=== PATIENT | female | born 1950 | race Caucasian/White ===

== ENCOUNTER 2016-07-05 07:20 | Outpatient (CLI) | payer OTHER | END 2016-07-05 07:21 | disposition home or self-care (01) | DX: E11.9 Type 2 diabetes mellitus without complications (principal) ==

== ENCOUNTER 2017-01-16 10:35 | Outpatient (CLI) | payer OTHER ==
--- NOTE | 2017-01-17 12:33 | Mammography Report ---
DIGITAL SCREENING MAMMOGRAM: 01/16/2017 CLINICAL INDICATION: A 66-year-old for screening. COMPARISON: 09/2015, 07/2014, 07/2013, 07/2012, 02/2011, 01/2010 TECHNIQUE: Routine CC and MLO projections were obtained of the breasts. FINDINGS: The breasts again demonstrate fatty replacement bilaterally. Coarse and punctate, typical ly benign calcifications are present. No suspicious masses, clustered microcalcifications, or region s of architectural distortion are identified. IMPRESSION: BENIGN FINDINGS. RECOMMENDATION: Routine annual screening unless otherwise clinically indicated. BIRADS CATEGORY 2 - BENIGN FINDINGS. STANDARD QUALIFYING STATEMENTS 1. This examination was reviewed with the aid of Computer-Aided Detection (CAD). 2. A negative or benign imaging report should not delay biopsy if clinically suspicious findings are present. Consider surgical consultation if warranted. More than 5% of cancers are not identified by i maging. 3. Dense breasts may obscure an underlying neoplasm. JOB #: [id number] EXT JOB #:[id number]
== END 2017-01-16 10:36 | disposition home or self-care (01) ==
LOC: DI.N 10:35
PROVIDERS: ATTEND Physician Assistant Medical
DX: Z12.31 Encounter for screening mammogram for malignant neoplasm of breast (principal)
CPT/HCPCS: 77067

== ENCOUNTER 2017-08-11 09:15 | Outpatient (CLI) | payer MEDICARE, OTHER ==
[2017-08-11 12:37] LABS: BASOPHILS % (AUTO) 0.7 %; EOSINOPHILS # (AUTO) 0.2 10^3/uL (0.0-0.7); EOSINOPHILS % (AUTO) 3.4 %; HGB - HEMOGLOBIN 13.9 g/dL (12.0-16.0); LYMPHOCYTES # (AUTO) 1.7 10^3/uL (1.5-3.5); LYMPHOCYTES % (AUTO) 34.7 %; MEAN CORPUSCULAR HEMOGLOBIN 33.9 pg (27.0-31.0); MEAN CORPUSCULAR HGB CONC 33.5 g/dL (32.0-36.0); MEAN CORPUSCULAR VOLUME 101.2 fL (81.0-99.0); MEAN PLATELET VOLUME 8.2 fL (7.9-10.8); MONOCYTES # (AUTO) 0.5 10^3/uL (0.0-1.0); MONOCYTES % (AUTO) 9.7 %; NEUTROPHILS # (AUTO) 2.6 10^3/uL (1.5-6.6); NEUTROPHILS % (AUTO) 51.5 %; PLT - PLATELET COUNT 273 10^3/uL (130-450); RED CELL DISTRIBUTION WIDTH 13.4 % (12.0-15.0)
[2017-08-11 13:09] LABS: ALBUMIN 3.6 g/dL (3.2-5.5); ALBUMIN/GLOBULIN RATIO 0.9 (1.0-2.2); ALKALINE PHOSPHATASE 66 IU/L (42-121); ALT ALANINE AMINOTRANSFERASE 14 IU/L (10-60); AST ASPARTATE AMINOTRANSFERASE 24 IU/L (10-42); BILIRUBIN,TOTAL 1.1 mg/dL (0.2-1.0); BUN - BLOOD UREA NITROGEN 16 mg/dL (6-20); CALCIUM 8.9 mg/dL (8.5-10.3); CARBON DIOXIDE - CO2 24 mmol/L (21-32); CHLORIDE 108 mmol/L (101-111); CHOL/HDL RATIO 3.9 (<4.4); CHOLESTEROL 191 mg/dL; CREATININE 0.6 mg/dL (0.4-1.0); GFR - MDRD 100 (>89); GLUCOSE 103 mg/dL (70-100); HDL CHOLESTEROL 49 mg/dL; LDL CHOLESTEROL,CALCULATED 128 mg/dL; LDL/HDL RATIO 2.6 (<4.4); SODIUM 137 mmol/L (135-145); TOTAL PROTEIN 7.5 g/dL (6.7-8.2); VLDL CHOLESTEROL 14 mg/dL
[2017-08-11 13:38] LABS: HB2 TOTAL 15.3 g/dL; HEMOGLOBIN A1C 0.58 g/dL; HEMOGLOBIN A1C % 5.6 % (4.6-6.2)
== END 2017-08-11 09:16 | disposition home or self-care (01) ==
LOC: LAB.WCP 09:15
PROVIDERS: ATTEND Family Medicine
DX: E78.5 Hyperlipidemia, unspecified (principal); E11.9 Type 2 diabetes mellitus without complications; E03.9 Hypothyroidism, unspecified
CPT/HCPCS: 36415; 80053; 80061; 83036; 83721; 84443; 85025

== ENCOUNTER 2017-10-16 07:43 | Outpatient (CLI) | payer MEDICARE, OTHER | END 2017-10-16 07:44 | disposition home or self-care (01) | LOC: LAB.WCP 07:43 | PROVIDERS: ATTEND Family Medicine | DX: E03.9 Hypothyroidism, unspecified (principal) | CPT/HCPCS: 36415; 84443 ==

== ENCOUNTER 2017-10-25 16:56 | Outpatient (CLI) | payer MEDICARE, OTHER ==
--- NOTE | 2017-10-26 04:03 | Ultrasound Report ---
Reason: HYPOTHYROIDISM NOS Procedure Date: 10/25/2017 Accession Number: [id number] / [id number] Procedure: US - Head or Neck Soft Tissue CPT Code: FULL RESULT: EXAM: THYROID ULTRASOUND EXAM DATE: 10/25/2017 05:02 PM. CLINICAL HISTORY: HYPOTHYROIDISM NOS. COMPARISON: 01/05/2009. TECHNIQUE: Real time sonographic imaging of the thyroid was performed by the match up person. Multiple customer relations representative static images were saved for review. FINDINGS: THYROID GLAND: Right Lobe: 4.2 x 1.4 x 1.2 cm, volume 4 cc. Heterogeneous background echotexture. Right Lobe Nodules: Echogenic 7 x 7 x 6 mm nodule in the midportion of the right lobe, without increased vascularity. Left Lobe: 4.5 x 1.6 x 1.4 cm, volume 5 cc. Heterogeneous background echotexture. Left Lobe Nodules: None. Isthmus: 0.2 cm AP. Isthmic Nodules: None. LYMPH NODES: No adenopathy demonstrated in the central or lateral compartment. OTHER: None. IMPRESSION: Heterogeneous thyroid. 7 mm echogenic nodule, without evidence of hypervascularity, in the midportion of the right lobe. Fine-needle aspiration not recommended based on YAW guidelines. Management recommendations are based on 2015 [employer] [employer] Management Guidelines for Adult Patients with Thyroid Nodules and Differentiated Thyroid Cancer. RADIA
== END 2017-10-25 16:57 | disposition home or self-care (01) ==
LOC: DI 16:56
PROVIDERS: ATTEND Physician Assistant Medical
DX: E03.9 Hypothyroidism, unspecified (principal)
CPT/HCPCS: 76536

== ENCOUNTER 2017-11-07 15:46 | Outpatient (CLI) | payer MEDICARE, OTHER | END 2017-11-07 15:47 | disposition critical access hospital (66) | LOC: EMS 15:46 | PROVIDERS: ATTEND Surgery | DX: R07.9 Chest pain, unspecified (principal) | CPT/HCPCS: A0425; A0427 ==

== ENCOUNTER 2017-11-07 16:13 | Observation (INO) | payer MEDICARE, OTHER ==
--- NOTE | 2017-11-07 16:20 | ED Physician Documentation ---
PD HPI CHEST PAIN - Stated complaint Stated Complaint: CP - History obtained from History obtained from: Patient, EMS - History of Present Illness Timing - onset: How many hours ago (1), Today Timing - onset during: Light activity (She was sitting at chair resting and had onset of chest pressure/tightness associated with lightheaded feeling, some dyspnea and was pale and sweaty. Taken directly to her PCP office and was there given ASA and NTGx2 with improvement moderately. No prior similar. ECG in office showed some T wave flatteneing but no acute ischemic changes.) Timing - duration: Hours (1) Timing - details: Abrupt onset, Still present Quality: Pressure, Tightness, Dull. No: Indigestion Location: Substernal, Left chest Associated symptoms: Diaphoresis, Nausea, Feeling faint / dizzy, General Weakness. No: Shortness of air, Palpitations, Cough Similar symptoms before: Has not had sx before (had an episode of esophageal spasm with similar symptoms about 10 years ago. No recent symptoms.) Recently seen: Clinic Review of Systems Constitutional: denies: Fever, Chills, Myalgias Nose: denies: Rhinorrhea / runny nose, Congestion Throat: denies: Sore throat Cardiac: reports: Chest pain / pressure. denies: Palpitations, Pedal edema, Calf pain Respiratory: denies: Dyspnea, Cough, Wheezing GI: reports: Nausea. denies: Abdominal Pain, Vomiting, Diarrhea Skin: denies: Rash, Lesions Neurologic: reports: Generalized weakness. denies: Focal weakness, Numbness PD PAST MEDICAL HISTORY - Past Medical History Cardiovascular: High cholesterol Endocrine/Autoimmune: Type 2 diabetes, HyPOthyroidism HEENT: Other - Present Medications Home Medications: Ambulatory Orders Medication Instructions Recorded Confirmed Aspirin [Aspir 81] 81 mg PO 12/26/12 12/26/12 Citalopram [CeleXA] 10 mg PO 12/26/12 12/26/12 Levothyroxine [Synthroid] 125 mcg PO QDAC 12/26/12 12/26/12 Metformin HCl [Metformin HCl ER] 500 mg PO 12/26/12 12/26/12 Atorvastatin [Lipitor] 10 mg DAILY 11/07/17 11/07/17 - Allergies Allergies/Adverse Reactions: Allergies Allergy/AdvReac Type Severity Reaction Status Date / Time Penicillins Allergy unknown Unverified 12/25/12 14:06 procaine [From Novocain] AdvReac Severe Unknown Verified 11/07/17 17:13 - Living Situation Living Situation: reports: With spouse/s.o. Living Arrangement: reports: At home - Social History Does the pt smoke?: No Does the pt have substance abuse?: No - Family History Family history: reports: CAD PD ED PE NORMAL - Vitals Vital signs reviewed: Yes - General General: Alert and oriented X 3, No acute distress (mild pallor, no diaphoresis), Well developed/nourished - HEENT HEENT: Pharynx benign - Neck Neck: Supple, no meningeal sign, No adenopathy - Cardiac Cardiac: RRR, No murmur - Respiratory Respiratory: Clear bilaterally - Abdomen Abdomen: Soft, Non tender - Back Back: No CVA TTP - Derm Derm: Warm and dry. No: Normal color (slightly pale) - Extremities Extremities: No deformity, No tenderness to palpate, Normal ROM s pain, No edema, No calf tenderness / cord - Neuro Neuro: Alert and oriented X 3, foot caster 2-12 intact, No motor deficit, No sensory deficit, Normal speech - Psych Psych: Normal mood, Normal affect Results - Vitals Vitals: Vital Signs - 24 hr 11/07/17 11/07/17 11/07/17 16:17 16:36 17:52 Temperature 36.2 C L Heart Rate 76 65 Respiratory 16 12 Rate Blood Pressure 83/56 L 98/62 102/59 L O2 Saturation 97 99 11/07/17 18:35 Temperature 36.0 C L Heart Rate 67 Respiratory 14 Rate Blood Pressure 113/66 O2 Saturation 9 L Oxygen O2 Source Room air - EKG (time done) 16:29 Rate: Rate (enter#) (77) Rhythm: NSR [place]: Normal Intervals: Normal VT QRS: Normal Ischemia: Normal ST segments. No: ST elevation c/w ischemia, ST depression, T wave inversion (but has flattened t waves anterolaterally) Compare to prior EKG: Old EKG unavailable - Labs Labs: Laboratory Tests 11/07/17 11/07/17 11/07/17 16:14 16:32 16:32 WBC 7.7 RBC 3.56 L Hgb 12.0 Hct 34.7 L MCV 97.5 MCH 33.6 H MCHC 34.5 RDW 13.4 Plt Count 287 MPV 7.8 L Neut # (Auto) 5.1 Lymph # (Auto) 1.8 [place] # (Auto) 0.7 Eos # (Auto) 0.1 Baso # (Auto) 0.0 Absolute Nucleated RBC 0.00 Nucleated RBC % 0.0 Sodium 140 Potassium 3.6 Chloride 108 Carbon Dioxide 23 Anion Gap 9.0 BUN 17 Creatinine 0.6 Estimated GFR (MDRD) 100 Glucose 116 H Calcium 9.2 Magnesium 1.8 Total Bilirubin 0.7 AST 72 H ALT 43 Alkaline Phosphatase 86 Troponin I Total Protein 7.0 Albumin 3.6 Globulin 3.4 Albumin/Globulin Ratio 1.1 Lipase 46 11/07/17 16:32 WBC RBC Hgb Hct MCV MCH MCHC RDW Plt Count MPV Neut # (Auto) Lymph # (Auto) [place] # (Auto) Eos # (Auto) Baso # (Auto) Absolute Nucleated RBC Nucleated RBC % Sodium Potassium Chloride Carbon Dioxide Anion Gap BUN Creatinine Estimated GFR (MDRD) Glucose Calcium Magnesium Total Bilirubin AST ALT Alkaline Phosphatase Troponin I < 0.04 Total Protein Albumin Globulin Albumin/Globulin Ratio Lipase - Rads (name of study) chest xray Radiology: Prelim report reviewed (no acute findings) PD MEDICAL DECISION MAKING - ED course Complexity details: reviewed results, re-evaluated patient, considered differential (symptoms concerning for ACS and will need to rule out DE. ), d/w patient, d/w rehab consultant (hospitalist) - Sepsis Event Vital Signs: Vital Signs - 24 hr 11/07/17 11/07/17 11/07/17 16:17 16:36 17:52 Temperature 36.2 C L Heart Rate 76 65 Respiratory 16 12 Rate Blood Pressure 83/56 L 98/62 102/59 L O2 Saturation 97 99 11/07/17 18:35 Temperature 36.0 C L Heart Rate 67 Respiratory 14 Rate Blood Pressure 113/66 O2 Saturation 9 L Oxygen O2 Source Room air Departure - Departure Disposition: ED Place in Observation Clinical Impression: Chest pain, rule out acute myocardial infarction Chest pain Qualifiers: Chest pain type: precordial pain Qualified Code(s): R07.2 - Precordial pain Condition: Stable Record reviewed to determine appropriate education?: Yes
[2017-11-07 16:39] LABS: BASOPHILS % (AUTO) 0.6 %; EOSINOPHILS # (AUTO) 0.1 10^3/uL (0.0-0.7); EOSINOPHILS % (AUTO) 1.9 %; LYMPHOCYTES # (AUTO) 1.8 10^3/uL (1.5-3.5); LYMPHOCYTES % (AUTO) 23.3 %; MEAN CORPUSCULAR HEMOGLOBIN 33.6 pg (27.0-31.0); MEAN CORPUSCULAR HGB CONC 34.5 g/dL (32.0-36.0); MEAN CORPUSCULAR VOLUME 97.5 fL (81.0-99.0); MEAN PLATELET VOLUME 7.8 fL (7.9-10.8); MONOCYTES # (AUTO) 0.7 10^3/uL (0.0-1.0); MONOCYTES % (AUTO) 8.9 %; NEUTROPHILS # (AUTO) 5.1 10^3/uL (1.5-6.6); NEUTROPHILS % (AUTO) 65.3 %; PLT - PLATELET COUNT 287 10^3/uL (130-450); RED BLOOD COUNT 3.56 10^6/uL (4.20-5.40); RED CELL DISTRIBUTION WIDTH 13.4 % (12.0-15.0); WHITE BLOOD COUNT 7.7 x10^3/uL (4.8-10.8)
[2017-11-07] MEDS ORDERED: LIDOCAINE VISCOUS 2% 15 ML UDC MM STA (16:54)
[2017-11-07] MEDS ORDERED: MAG HYDROX/AL HYDROX/SIMETH 30 ML UDC PO STA (16:54)
[2017-11-07 16:59] LABS: ALBUMIN 3.6 g/dL (3.2-5.5); ALBUMIN/GLOBULIN RATIO 1.1 (1.0-2.2); BILIRUBIN,TOTAL 0.7 mg/dL (0.2-1.0); CALCIUM 9.2 mg/dL (8.5-10.3); CREATININE 0.6 mg/dL (0.4-1.0)
--- NOTE | 2017-11-07 18:34 | XRAY Report ---
Reason: chest pain Procedure Date: 11/07/2017 Accession Number: [id number] / [id number] Procedure: XR - Chest 1 View X-Ray CPT Code: 98275 FULL RESULT: EXAM: CHEST RADIOGRAPHY EXAM DATE: 11/07/2017 06:28 PM. CLINICAL HISTORY: Chest pain. COMPARISON: 07/09/2007 10:05 AM. TECHNIQUE: 1 view. FINDINGS: Lungs/Pleura: No focal opacities evident. No pleural effusion. No pneumothorax. Mediastinum: Within exam limitations, the cardiomediastinal contour is normal. IMPRESSION: Normal single view chest. RADIA
[2017-11-07] MEDS ORDERED: SODIUM CHLORIDE FLUSH 0.9% 10 ML SYRINGE IVP PRN (21:57)
[2017-11-07] MEDS: SODIUM CHLORIDE FLUSH 0.9% 10 ML SYRINGE IVP SCH (23:45)
[2017-11-08] MEDS ORDERED: ACETAMINOPHEN 325 MG TABLET PO PRN (00:15)
[2017-11-08] MEDS ORDERED: CITALOPRAM 10 MG TABLET PO SCH (00:40)
--- NOTE | 2017-11-08 02:51 | HISTORY & PHYSICAL EXAMINATION ---
Chief Complaint - Chief Complaint Chief Complaint: chest pain History of Present Illness - History of Present Illness HPI Comment/Other: Patient is a 66 y/o female with Hx of DM, Hypothyroidism, Hyperlipidemia and depression who presented from her PCP's office with chest pain across her entire chest with radiation to her back. She rated it 9/10 at the time. Onset was around 2pm on 11/08/17. It felt like a rubber band. She was having some LACI and was diaphoretic. EKG done at the PCP's office showed t wave flattening in unspecified leads. She took 4 baby aspirin. When EMT arrived she was given 2 nitroglycerin tablets from which she had significant relief. She reports similar pain about 10 years ago. At the time it was attributed to esophageal spasm. She reported some dizziness as well. History - Past Medical History Cardiovascular: reports: High cholesterol Endocrine/Autoimmune: reports: Type 2 diabetes, HyPOthyroidism GI: reports: Other HEENT: reports: Other Psych: reports: Depression Musculoskeletal: reports: Osteoarthritis - Past Surgical History HEENT: reports: Tonsil/Adenoidectomy - Family & Social History Living arrangement: At home Living Situation: With spouse/s.o. - POLST POLST Status: Full Code Meds/Allgy - Home Medications Home Medications: Ambulatory Orders Medication Instructions Recorded Confirmed Aspirin [Aspir 81] 81 mg PO 12/26/12 12/26/12 Citalopram [CeleXA] 15 mg PO 12/26/12 12/26/12 Levothyroxine [Synthroid] 125 mcg PO QDAC 12/26/12 12/26/12 Metformin HCl [Metformin HCl ER] 500 mg PO 12/26/12 12/26/12 Atorvastatin [Lipitor] 10 mg DAILY 11/07/17 11/07/17 - Allergies Allergies/Adverse Reactions: Allergies Allergy/AdvReac Type Severity Reaction Status Date / Time Penicillins Allergy unknown Verified 11/07/17 22:06 procaine [From Novocain] AdvReac Severe Unknown Verified 11/07/17 22:06 Review of Systems - Constitutional Constitutional: reports: Diaphoresis. denies: Fatigue, Fever, Chills, Weakness, Poor appetite - Eyes Eyes: denies: Pain, Irritation, Blurred vision, Spots in vision, Vision loss, Dipolpia - Ears, Nose & Throat Ears, Nose & Throat: denies: Ear pain, Hearing loss, Hearing aids, Nasal obstruction, Nasal congestion - Cardiovascular Cariovascular: reports: Chest pain, Lightheadedness. denies: Irregular heart rate, Palpitations, Edema - Respiratory Respiratory: denies: Cough, Sputum production, Wheezing, Snoring, Hemoptysis - Gastrointestinal Gastrointestinal: denies: Abdominal pain, Abdominal distention, Constipation, Diarrhea, Change in bowel habits, Nausea, Vomiting - Genitourinary Genitourinary: denies: Dysuria, Frequency, Urgency, Hematuria - Musculoskeletal Musculoskeletal: denies: Muscle pain, Back pain, Muscle aches, Stiffness - Integumentary Integumentary: denies: Rash, Pruritis, Lesions, Dryness - Neurological Neurological: denies: General weakness, Focal weakness, Headache, Numbness - Psychiatric Psychiatric: reports: Depression. denies: Anxiety, Suicidal, Delusions - Endocrine Endocrine: denies: Polyuria, Polydypsia - Hematologic/Lymphatic Hematologic/Lymphatic: denies: Anemia, Bruising, Petechiae, Blood clots Exam - Vital Signs Vital Signs: Vital Signs x48h Temp Pulse Pulse Resp BP BP BP 11/07/17 23:41 36.8 C 60 18 129/73 11/07/17 22:41 36.5 C 66 16 109/57 L 11/07/17 22:06 74 15 115/67 11/07/17 20:56 71 16 123/80 11/07/17 18:35 36.0 C L 67 14 113/66 Pulse Ox 11/07/17 23:41 100 11/07/17 22:41 96 11/07/17 22:06 95 11/07/17 20:56 98 11/07/17 18:35 9 L - Physical Exam General Appearance: positive: No acute distress, Alert, Mild distress Eyes Bilateral: positive: Normal inspection, PERRL, EOMI, No scleral icterus ENT: positive: ENT inspection nml, Pharynx nml, No signs of dehydration Neck: positive: Nml inspection, No JVD, Trachea midline. negative: Thyromegaly Respiratory: positive: Chest non-tender, No respiratory distress, Breath sounds nml Cardiovascular: positive: Regular rate & rhythm, No murmur, No gallop Abdomen: positive: Non-tender, No organomegaly, Nml bowel sounds, No distention Skin: positive: Color nml, No rash, Warm, Dry, Cyanosis Extremities: positive: Non-tender, Nml appearance, No pedal edema Neurologic/Psychiatric: positive: Oriented x3, CN's nml (2-12), Motor nml, Sensation nml Conclusion/Plan - Problem List (1) Chest pain, rule out acute myocardial infarction Conclusion/Plan: Trend troponin X 2 more Full dose aspirin daily If trops negative, will do stress test Stress test and 2D echo have been ordered Should chest pain return, will administer nitropaste (2) Hypothyroidism Conclusion/Plan: On synthroid 125mcg po daily (3) Diabetes mellitus Conclusion/Plan: Will hold metformin while in the hospital If needed will order SSI. Accu checks Qualifiers: Diabetes mellitus type: type 2 Diabetes mellitus petroleum terminal plant operator insulin use: without petroleum terminal plant operator use Diabetes mellitus complication status: without complication Qualified Code(s): E11.9 - Type 2 diabetes mellitus without complications (4) Depression Conclusion/Plan: On citalopram (5) DVT prophylaxis Conclusion/Plan: Lovenox 40 units subq - Lab Results Fish Bones: 11/07/17 16:32 11/07/17 16:32 Core Measures - Anticipated LOS I expect patient to be DC'd or transferred within 96 hours.: Yes - DVT/VTE - Prophylaxis VTE/DVT Device ordered at admit?: Yes VTE/DVT Prophylaxis med ordered at admit?: Yes - AMI - Statin at Admit Aspirin Prescribed on Admit: Yes
[2017-11-08] MEDS ORDERED: LEVOTHYROXINE 125 MCG TABLET PO SCH (07:00)
[2017-11-08] MEDS ORDERED: ENOXAPARIN 40 MG/0.4 ML SYRINGE SUBQ SCH (09:00)
[2017-11-08] MEDS ORDERED: ATORVASTATIN 10 MG TABLET PO SCH (09:00)
[2017-11-08] MEDS ORDERED: ASPIRIN EC 325 MG TABLET PO SCH (09:00)
[2017-11-08] MEDS ORDERED: POLYETHYLENE GLYCOL 3350 17 GM PACKET PO SCH (09:00)
[2017-11-08] MEDS: SODIUM CHLORIDE FLUSH 0.9% 10 ML SYRINGE IVP SCH (09:24)
[2017-11-08] MEDS ORDERED: REGADENOSON 0.4 MG/5 ML SYRINGE IVP ONE ×2 (11:52→14:22)
--- NOTE | 2017-11-08 14:50 | Nuclear Medicine Report ---
Reason: angina Procedure Date: 11/08/2017 Accession Number: [id number] / [id number] Procedure: NM - Myocardial Perfusion STR/RST CPT Code: FULL RESULT: EXAM: SINGLE-ISOTOPE PHARMACOLOGICAL STRESS TEST WITH REGADENOSON. SINGLE-ISOTOPE AND ONE-DAY REST/STRESS MYOCARDIAL PERFUSION SCANS WITH TOMOGRAPHIC IMAGING, QUANTITATIVE ANALYSIS, WALL MOTION ANALYSIS AND CALCULATION OF EJECTION FRACTION. EXAM DATE: 11/08/2017 02:15 PM. CLINICAL HISTORY: Angina. COMPARISON: None available. TECHNIQUE: After the intravenous administration of 10.1 mCi of Tc-99m sestamibi, a rest myocardial perfusion scan was done with tomography. Motion correction was applied when appropriate. After an appropriate delay, pharmacological stress was performed with the infusion of 0.4 mg regadenoson per protocol. According to protocol, 42.3 mCi of Tc-99m sestamibi was injected for stress myocardial perfusion scan. Motion correction was applied when appropriate. Gated tomographic images were obtained for wall motion analysis and computation of left ventricular ejection fraction. EKG findings are reported separately FINDINGS: No significant fixed or reversible perfusion defects are evident. Computer analysis: Summed stress score 3 Summed rest score 2 Summed difference score 1 Wall motion analysis demonstrates no focal wall motion abnormality. The left ventricular end-diastolic volume is 66 cc. The left ventricular end-systolic volume is 13 cc. The left ventricular ejection fraction is calculated to be 80%. IMPRESSION: 1. No scintigraphic findings to indicate myocardial ischemia. Negative for infarct. 2. Left ventricular ejection fraction of 80%. 3. Normal segmental and global wall motion. 4. Normal left ventricular cavity size, no change with stress. 5. Based on computer analysis, normal exam with no ischemia. RADIA
--- NOTE | 2017-11-08 15:23 | Discharge Plan ---
Discharge Plan Disposition: 01 Home, Self Care Condition: Good Diet: Diabetic Activity Restrictions: No Restrictions Shower Restrictions: No Driving Restrictions: No Weight Bearing: Full Weight Additional Instructions or Follow Up instructions: You were admitted with chest pain that was located in your mid-chest and caused you to be dizzy. We are very glad that you came in and all of your cardiac testing (EKGs, echocardiogram, and a myocardial perfusion stress test) was normal for cardiac damage or suspected coronary blockages. These symptoms resolved with 4 baby aspirins and nitroglycerin. You mentioned that you had a history of esophageal spasms, which is the most likely cause of these symptoms. We suggest an EGD as the symptoms that you describe could be from a condition called achalasia. (preventing areas of the esophagus from squeezing food into the stomach) Preliminary echocardiogram results show severe right atrial enlargement, for this we suspect un-diagnosed sleep apnea as a possible cause. You should get a sleep study evaluation in the near future. Please stay hydrated for your dizzy symptoms. We suggest no medication changes and want you to enjoy your upcoming cruise. Please see your PCP within one week. No Smoking: If you smoke, Please STOP! Call for help. Follow-up with: Sandy Guzman PA-C [Primary Care Provider] -
--- NOTE | 2017-11-08 16:16 | DISCHARGE SUMMARY ---
Discharge Summary Admit Date: 11/07/17 Discharge Date: 11/08/17 Discharging Provider: MARIE Verma Primary Care Provider: Sandy Guzman Code Status: Attempt Resuscitation Condition at Discharge: Good Discharge Disposition: 01 Home, Self Care - DIAGNOSES Admission Diagnoses: Chest pain, unspecified (R07.9) Hypothyroidism, unspecified (E03.9) Type 2 diabetes mellitus without complications (E11.9) Major depressive disorder, single episode, unspecified (F32.9) Discharge Diagnoses with Status of Each Condition: Chest pain, rule out acute myocardial infarction (R07.9) ruled out, stable. Diabetes mellitus type 2 in obese (E11.69) chronic, stable. H/O esophageal spasm (Z87.19) chronic, stable. Hypothyroidism (E03.9) chronic, stable. Depression (F32.9) chronic, stable. Pulmonary hypertension (I27.20) new on this admit, will need a sleep study. Hyperlipidemia (E78.5) chronic, stable. - HPI History of Present Illness: Vianey Pate (Anne) is a 66 y/o female with a past medical history of diet controlled diabetes mellitus type 2, hypothyroidism, hyperlipidemia and depression who presented via EMS with chest pain across her entire chest with radiation to her back. She rated it 9/10 at the time. Onset was around 2pm on 11/08/17 while ambulating into the supermarket. The patient describes the pain as "feeling like a rubber band". She admits to mild dizziness and diaphoresis. While en route to the ED, EMS gave the patient 4 chewable baby aspirin, and 2 nitroglycerin tablets from which she had significant relief. She reports similar pain about 10 years ago, was ruled out for cardiac causes, and attributed to esophageal spasm. In the ED an EKG showed t wave flattening in unspecified leads, with no prior EKG to compare. There were no significant lab abnormalities, and the first troponin was negative at 0.04. She was admitted to observation for further cardiac work up, including telemetry, an echocardiogram, and a myocardial perfusion stress test. - HOSPITAL COURSE Hospital Course: (1) Chest pain, rule out acute myocardial infarction Trend troponins x3-were negative. The patient was given a full dose aspirin, and high dose statin therapy. The patient underwent a chemical stress test, which was negative. She had an echocardiogram showing no wall motion abnormal ities. This is now ruled out. (2) Hypothyroidism The patient's last TSH was 6.46 on 10/16/17. She is prescribed synthroid 125mcg po daily at home and there were no changes made. (3) Diabetes mellitus The patient was prescribed metformin, which was on hold while in the hospital. She was given a one time dose of Lantus 10 units x1, given a SSI and Accu checks were completed. Her last hemoglobin A1C was 5.6% on 08/11/17, and the patient states that her sugars have been controlled lately. An early AM sugar was 116. This is considered stable upon discharge. (4) Depression The patient exhibited no signs of a depressed mood and denies suicidal ideation. She is prescribed citalopram at home which was continued here. This condition is thought to be in stable condition upon discharge. (5) Pulmonary HTN The patient has evidence of this as evidence of her physic as she has a very large abdominal girth. Her states that she snores at night and her echo has evidence of this as her RA is severely enlarged, although no RVSP was measured. (6) Hyperlipidemia This condition is thought to be stable and she remained on her normal statin that was continued at home. (7) H/O esophageal spasm The patient had similar symptoms to this event ~10 years ago. She states that she had a cardiac work up, which was normal. She was instructed to have a follow up as per her PCP with a possible scope. Disposition: The patient was anxious to be on her way at the time of discharge. She was transported via private car with her . She was symptom free and was told to follow up with her PCP for a sleep study test and follow up care with a possible EGD for her suspected alchalasia. - ALLERGIES Allergies/Adverse Reactions: Allergies Allergy/AdvReac Type Severity Reaction Status Date / Time Penicillins Allergy unknown Verified 11/07/17 22:06 procaine [From Novocain] AdvReac Severe Unknown Verified 11/07/17 22:06 - MEDICATIONS Home Medications: Ambulatory Orders Medication Instructions Recorded Confirmed Aspirin [Aspir 81] 81 mg PO DAILY 12/26/12 11/08/17 Citalopram [CeleXA] 30 mg PO DAILY 12/26/12 11/08/17 Levothyroxine [Synthroid] 125 mcg PO QDAC 12/26/12 11/08/17 Metformin HCl [Metformin HCl ER] 500 mg PO QDBREAKFAST 12/26/12 11/08/17 Atorvastatin [Lipitor] 20 mg PO QPM 11/07/17 11/08/17 Dorzolamide/Timolol Ophth Soln 1 drops EACHEYE BID 11/08/17 11/08/17 [Cosopt] Tafluprost/Pf [Zioptan 0.0015% Eye 1 drops EACHEYE QPM 11/08/17 11/08/17 Drops] - PHYSICAL EXAM AT DISCHARGE General Appearance: positive: No acute distress, Alert Eyes Bilateral: positive: Normal inspection, PERRL ENT: positive: ENT inspection nml, Pharynx nml, No signs of dehydration Neck: positive: Nml inspection, Thyroid nml, No JVD, Trachea midline Respiratory: positive: Chest non-tender, No respiratory distress, Breath sounds nml Cardiovascular: positive: Regular rate & rhythm, No murmur, No gallop, Bradycardia Peripheral Pulses: positive: 1+ Abdomen: positive: Non-tender, Nml bowel sounds, Other (rounded, soft) Back: positive: Nml inspection Skin: positive: No rash, Warm, Dry Extremities: positive: Non-tender, Full ROM, Nml appearance, No pedal edema Neurologic/Psychiatric: positive: Oriented x3, CN's nml (2-12), Motor nml, Sensation nml, Mood/affect nml Reflexes: Bicep (R): 3+, Bicep (L): 3+ - LABS Result Diagrams: 11/07/17 16:32 11/07/17 16:32 - DIAGNOSTIC IMAGING Diagnostic Imaging Results: Final report reviewed Diagnostic Imaging Results Comments: EXAM: CHEST RADIOGRAPHY EXAM DATE: 11/07/2017 06:28 PM. IMPRESSION: Normal single view chest. EXAM: SINGLE-ISOTOPE PHARMACOLOGICAL STRESS TEST WITH REGADENOSON. SINGLE- ISOTOPE AND ONE-DAY REST/STRESS MYOCARDIAL PERFUSION SCANS WITH TOMOGRAPHIC IMAGING, QUANTITATIVE ANALYSIS, WALL MOTION ANALYSIS AND CALCULATION OF EJECTION FRACTION. EXAM DATE: 11/08/2017 02:15 PM. IMPRESSION: 1. No scintigraphic findings to indicate myocardial ischemia. Negative for infarct. 2. Left ventricular ejection fraction of 80%. 3. Normal segmental and global wall motion. 4. Normal left ventricular cavity size, no change with stress. 5. Based on computer analysis, normal exam with no ischemia. ECHOCARDIOGRAM: Final read by Sarbjit Omer MD 1. The LV size is normal. Mild concentric LV hypertrophy. Overall LV systolic function is normal with an EF of 70-75%. 2. The RV is normal in size and function. 3. There is no pericardial effusion noted. 4. No hemodynamically significant valvular disease. - FOLLOW UP Follow Up: Disposition: 01 Home, Self Care Condition: Good Diet: Diabetic Activity Restrictions: No Restrictions Shower Restrictions: No Driving Restrictions: No Weight Bearing: Full Weight Additional Instructions or Follow Up instructions: You were admitted with chest pain that was located in your mid-chest and caused you to be dizzy. We are very glad that you came in and all of your cardiac testing (EKGs, echocardiogram, and a myocardial perfusion stress test) was normal for cardiac damage or suspected coronary blockages. These symptoms resolved with 4 baby aspirins and nitroglycerin. You mentioned that you had a history of esophageal spasms, which is the most likely cause of these symptoms. We suggest an EGD as the symptoms that you describe could be from a condition called achalasia. (preventing areas of the esophagus from squeezing food into the stomach) Preliminary echocardiogram results show severe right atrial enlargement, for this we suspect un-diagnosed sleep apnea as a possible cause. You should get a sleep study evaluation in the near future. Please stay hydrated for your dizzy symptoms. We suggest no medication changes and want you to enjoy your upcoming cruise. Please see your PCP within one week. - TIME SPENT Time Spent in Discharge (Minutes): 50
[2017-11-08 16:33] VITALS: BP 118/79
--- NOTE | 2017-11-16 01:54 | CARDIAC PROCEDURE NOTE ---
DATE OF SERVICE: 11/08/2017 Physician: Leeanne Brothers MD INDICATION: Chest pain. CARDIAC RISK FACTORS 1. Postmenopausal status. 2. Family history of heart disease. 3. Diabetes. 4. Elevated cholesterol. Patient underwent a Lexiscan nuclear stress test after signing informed consent. BASELINE ELECTROCARDIOGRAM: Normal sinus rhythm, diffusely flat T waves. Lexiscan was injected and the test was performed per protocol. The patient experienced chest pressure and headache that resolved spontaneously after 4 minutes. Resting heart rate 64, peak heart rate 82. Resting blood pressure 128/68. Peak blood pressure 120/75. PEAK ELECTROCARDIOGRAM: Similar diffuse T-wave flattening, no new EKG changes. IMPRESSION 1. Indeterminate EKG changes during pharmaceutical stress test due to abnormal resting EKG. 2. Nuclear images reported separately. TD: 11/15/2017 20:12 MTDD
== END 2017-11-08 16:30 | disposition home or self-care (01) ==
LOC: EDUNIT# → ED 16:13 → OBS 21:57
PROVIDERS: ADMIT Internal Medicine; ATTEND Nurse Practitioner
DX: R07.89 Other chest pain (principal); E11.9 Type 2 diabetes mellitus without complications; Z79.84 Long term (current) use of oral hypoglycemic drugs; E03.9 Hypothyroidism, unspecified; F32.9 Major depressive disorder, single episode, unspecified; I27.20 Pulmonary hypertension, unspecified; E78.5 Hyperlipidemia, unspecified; Z87.19 Personal history of other diseases of the digestive system; R61 Generalized hyperhidrosis
CPT/HCPCS: 36415; 71045; 78452; 80053; 83690; 83735; 84484; 85025; 93005; 93010; 93017; 93306; 96372; 99284; A9270; A9500; G0378; J1650; J2785

== ENCOUNTER 2018-02-01 08:00 | Outpatient (CLI) | payer MEDICARE, OTHER ==
[2018-02-01 19:41] LABS: THYROID STIMULATING HORMONE 0.15 uIU/mL (0.34-5.60)
[2018-02-01 20:14] LABS: FREE T4 (FREE THYROXINE) 1.02 ng/dL (0.58-1.64)
== END 2018-02-01 23:59 | disposition home or self-care (01) ==
LOC: LAB.WCP 08:00
PROVIDERS: ATTEND Physician Assistant Medical
DX: E03.9 Hypothyroidism, unspecified (principal)
CPT/HCPCS: 36415; 84439; 84443

== ENCOUNTER 2018-02-14 09:52 | Outpatient (CLI) | payer MEDICARE, OTHER ==
[2018-02-14 12:59] LABS: BASOPHILS % (AUTO) 0.7 %; EOSINOPHILS # (AUTO) 0.2 10^3/uL (0.0-0.7); EOSINOPHILS % (AUTO) 3.8 %; HGB - HEMOGLOBIN 13.3 g/dL (12.0-16.0); LYMPHOCYTES # (AUTO) 1.5 10^3/uL (1.5-3.5); LYMPHOCYTES % (AUTO) 31.5 %; MEAN CORPUSCULAR HEMOGLOBIN 32.5 pg (27.0-31.0); MEAN CORPUSCULAR HGB CONC 33.8 g/dL (32.0-36.0); MEAN PLATELET VOLUME 8.2 fL (7.9-10.8); MONOCYTES # (AUTO) 0.4 10^3/uL (0.0-1.0); MONOCYTES % (AUTO) 8.3 %; NEUTROPHILS # (AUTO) 2.6 10^3/uL (1.5-6.6); NEUTROPHILS % (AUTO) 55.7 %; PLT - PLATELET COUNT 279 10^3/uL (130-450); RED CELL DISTRIBUTION WIDTH 13.5 % (12.0-15.0); WHITE BLOOD COUNT 4.8 x10^3/uL (4.8-10.8)
[2018-02-14 13:15] LABS: FERRITIN 28.5 ng/mL (11.0-306.8)
[2018-02-14 13:49] LABS: HB2 TOTAL 13.7 g/dL; HEMOGLOBIN A1C 0.54 g/dL; HEMOGLOBIN A1C % 5.8 % (4.6-6.2)
[2018-02-14 21:13] LABS: ALBUMIN 3.6 g/dL (3.2-5.5); ALBUMIN/GLOBULIN RATIO 1.1 (1.0-2.2); BILIRUBIN,TOTAL 0.7 mg/dL (0.2-1.0); CALCIUM 8.9 mg/dL (8.5-10.3); CREATININE 0.7 mg/dL (0.4-1.0)
== END 2018-02-14 23:59 | disposition home or self-care (01) ==
LOC: LAB.WCP 09:52
PROVIDERS: ATTEND Physician Assistant Medical
DX: E11.9 Type 2 diabetes mellitus without complications (principal); R53.83 Other fatigue; R41.3 Other amnesia
CPT/HCPCS: 36415; 80053; 82306; 82607; 82728; 83036; 85025

== ENCOUNTER 2018-05-08 07:04 | Day surgery (SDC) | payer MEDICARE, OTHER ==
[2018-05-08] MEDS ORDERED: LACTATED RINGERS 1,000 ML IV ONE (07:28)
[2018-05-08] MEDS ORDERED: MIDAZOLAM 2 MG/2 ML VIAL IVP ONE (07:55)
[2018-05-08] MEDS ORDERED: fentaNYL 250 MCG/5 ML VIAL IVP ONE (07:55)
--- NOTE | 2018-05-08 09:01 | OPERATIVE REPORT ---
Operative Report - General Procedure Date: 05/08/18 Planned Procedure: colonoscopy Pre-Op Diagnosis: screening Procedure Performed: colonoscopy Post Op Diagnosis: cecal polyp - Procedure Note Primary Surgeon: barby Anesthesia Technique: Moderate sedation - Other Other Information/Narrative: The pt was brought into the OR and a timeout performed. Sedation was given. A well lubricated colonoscope was advanced into the rectal vault. The scope was advanced to the cecum. Prep was good. The appendiceal orifice and IC valve were identified. A small cecal polyp was removed with cold forcep. There was no residual bleeding. The scope was then slowly withdrawn while insufflating. Visualization was good. Numerous diverticuli were seen in her sigmoid colon, but otherwise no abnormalities were seen. The scope was retroflexed at the anal verge, then withdrawn completely. The pt tolerated the procedure well and was taken to recovery in good condition.
[2018-05-08 09:33] VITALS: BP 103/63
== END 2018-05-08 07:05 | disposition home or self-care (01) ==
LOC: SDS 07:04
PROVIDERS: ATTEND Surgery
PROC: 0DBH8ZZ Excision of Cecum, Via Natural or Artificial Opening Endoscopic (ICD-10-PCS; principal; 2018-05-08 08:30)
DX: Z12.11 Encounter for screening for malignant neoplasm of colon (principal); D12.0 Benign neoplasm of cecum; E11.9 Type 2 diabetes mellitus without complications
CPT/HCPCS: 45380; J3010; J7120

== ENCOUNTER 2018-07-17 08:00 | Outpatient (CLI) | payer MEDICARE, OTHER ==
[2018-07-17 19:05] LABS: BASOPHILS % (AUTO) 0.6 %; EOSINOPHILS # (AUTO) 0.1 10^3/uL (0.0-0.7); EOSINOPHILS % (AUTO) 1.9 %; HGB - HEMOGLOBIN 13.4 g/dL (12.0-16.0); LYMPHOCYTES # (AUTO) 1.9 10^3/uL (1.5-3.5); LYMPHOCYTES % (AUTO) 26.7 %; MEAN CORPUSCULAR HEMOGLOBIN 31.2 pg (27.0-31.0); MEAN CORPUSCULAR VOLUME 94.7 fL (81.0-99.0); MEAN PLATELET VOLUME 8.8 fL (7.9-10.8); MONOCYTES # (AUTO) 0.7 10^3/uL (0.0-1.0); MONOCYTES % (AUTO) 9.4 %; NEUTROPHILS # (AUTO) 4.3 10^3/uL (1.5-6.6); NEUTROPHILS % (AUTO) 61.4 %; PLT - PLATELET COUNT 293 10^3/uL (130-450); RED BLOOD COUNT 4.28 10^6/uL (4.20-5.40); RED CELL DISTRIBUTION WIDTH 14.1 % (12.0-15.0)
[2018-07-17 19:08] LABS: ALBUMIN 3.7 g/dL (3.2-5.5); BILIRUBIN,TOTAL 0.8 mg/dL (0.2-1.0); CALCIUM 9.3 mg/dL (8.5-10.3); CREATININE 0.5 mg/dL (0.4-1.0); TOTAL PROTEIN 7.3 g/dL (6.7-8.2)
[2018-07-17 19:36] LABS: HB2 TOTAL 14.5 g/dL; HEMOGLOBIN A1C 0.62 g/dL; HEMOGLOBIN A1C % 6.1 % (4.6-6.2)
== END 2018-07-17 23:59 | disposition home or self-care (01) ==
LOC: LAB.WCP 08:00
PROVIDERS: ATTEND Physician Assistant Medical
DX: R55 Syncope and collapse (principal); E11.9 Type 2 diabetes mellitus without complications
CPT/HCPCS: 36415; 80053; 82728; 83036; 85025

== ENCOUNTER 2018-07-22 09:19 | Outpatient (CLI) | payer MEDICARE, OTHER ==
--- NOTE | 2018-07-26 22:47 | Ultrasound Report ---
Reason: SYNCOPE AND COLLAPSE Procedure Date: 07/22/2018 Accession Number: [id number] / [id number] Procedure: US - Carotid Doppler Complete CPT Code: FULL RESULT: EXAM: BILATERAL CAROTID AND VERTEBRAL ARTERY DUPLEX DOPPLER ULTRASOUND. EXAM DATE: 07/22/2018 09:40 AM CLINICAL HISTORY: Syncope and collapse. COMPARISON: None. TECHNIQUE: Grayscale imaging, color Doppler, and duplex spectral Doppler were used to evaluate the carotid and vertebral arteries bilaterally. Static images were obtained. FINDINGS: Mild plaque is identified at the right and left carotid bifurcations. Normal antegrade flow is present in bilateral vertebral arteries. VELOCITIES (cm/sec): Right CCA mid: PSV 89 cm/sec CCA dist: PSV 82 cm/sec ICA prox: PSV 66 cm/sec, EDV 16 cm/sec ICA mid: PSV 68 cm/sec, EDV 25 cm/sec ICA dist: PSV 81 cm/sec, EDV 28 cm/sec ECA: PSV 104 cm/sec Vert: PSV 47 cm/sec ICA/CCA: 1.0 Left CCA mid: PSV 101 cm/sec CCA dist: PSV 89 cm/sec ICA prox: PSV 74 cm/sec, EDV 19 cm/sec ICA mid: PSV 95 cm/sec, EDV 37 cm/sec ICA dist: PSV 86 cm/sec, EDV 28 cm/sec ECA: PSV 105 cm/sec Vert: PSV 45 cm/sec ICA/CCA: 1.06 ICA diameter stenosis: Right: <50% by velocity and <70% by NASCET criteria. Left: <50% by velocity and <70% by NASCET criteria. IMPRESSION: 1. Mild bilateral carotid artery plaquing. 2. In the right carotid artery there are no elevated carotid artery velocities to suggest hemodynamically significant stenosis. 3. In the left carotid artery there are no elevated carotid artery velocities to suggest hemodynamically significant stenosis. 4. Normal antegrade flow is present in bilateral vertebral arteries. General Recommendations: Stenosis =50% ICA - Follow-up ultrasound 6-12 months Stenosis <50% ICA - High Risk Patient with plaque - Follow-up ultrasound 1-2 years Normal Study but High Risk Patient - Follow-up ultrasound 3-5 years Management recommendations and diagnostic criteria are based on current IAC endorsed standards in Carotid Artery Stenosis: Grayscale and Doppler Ultrasound Diagnosis. Validated velocity measurements with angiographic measurements and velocity criteria are extrapolated from diameter data as defined by the Society of Radiologists in Ultrasound Consensus Conference Radiology 2003; 229;340-346. RADIA
== END 2018-07-22 09:20 | disposition home or self-care (01) ==
LOC: DI 09:19
PROVIDERS: ATTEND Physician Assistant Medical
DX: R55 Syncope and collapse (principal)
CPT/HCPCS: 93880

== ENCOUNTER 2018-09-06 10:48 | Outpatient (CLI) | payer MEDICARE, OTHER ==
[2018-09-06] MEDS ORDERED: REGADENOSON 0.4 MG/5 ML SYRINGE IVP ONE ×2 (12:19→16:11)
--- NOTE | 2018-09-06 16:07 | CARDIAC PROCEDURE NOTE ---
DATE OF SERVICE: 09/06/2018 Physician: Leeanne Brothers MD, [facility] INDICATION: Abnormal EKG (possible iischemia or left bundle branch block). CARDIAC RISK FACTORS: Diabetes, postmenopausal status, elevated cholesterol. PROCEDURE: After signing informed consent, the patient underwent a Lexiscan pharmaceutical stress test with nuclear myocardial perfusion imaging. Resting heart rate: 61. Peak heart rate: 83. Resting blood pressure: 132/83. Peak blood pressure: 128/85. Lexiscan was infused per protocol. The patient developed brief headache, flushing, shortness of breath and bilateral arm "tingling." The symptoms all resolved spontaneously. She was also given caffeine in the form of cola at 5 minutes of recovery. RESTING EKG: Ectopic atrial rhythm with diffusely flat P-wave, flat T-waves in the limb leads, inverted T waves in leads V2 through V6. EKG AT PEAK: Ectopic atrial rhythm now with a inverted P-waves, no new ST segment or T-wave changes. SUMMARY 1. Abnormal resting electrocardiogram. 2. No ischemic changes by EKG criteria during pharmaceutical stress. 3. Abnormal rhythm noted after pharmaceutical stress. 4. Nuclear images reported separately. TD: 09/06/2018 14:59 MTDD
--- NOTE | 2018-09-07 12:11 | Nuclear Medicine Report ---
Reason: SYNCOPE AND COLLAPSE Procedure Date: 09/06/2018 Accession Number: [id number] / [id number] Procedure: NM - Myocardial Perfusion STR/RST CPT Code: FULL RESULT: EXAM: SINGLE-ISOTOPE PHARMACOLOGICAL STRESS TEST WITH REGADENOSON. SINGLE-ISOTOPE AND TWO-DAY REST/STRESS MYOCARDIAL PERFUSION SCANS WITH TOMOGRAPHIC IMAGING, QUANTITATIVE ANALYSIS, WALL MOTION ANALYSIS AND CALCULATION OF EJECTION FRACTION. EXAM DATE: 09/06/2018 11:45 AM. CLINICAL HISTORY: SYNCOPE AND COLLAPSE. COMPARISON: MYOCARDIAL PERFUSION 11/08/2017 11:38 AM. TECHNIQUE: A pharmacological stress was performed with the infusion of 0.4 mg regadenoson per protocol. According to protocol, 10.4 mCi of Tc-99m sestamibi was injected for stress myocardial perfusion scan. Motion correction was applied when appropriate. The following day after the intravenous administration of 42.9 mCi of Tc-99m sestamibi, a rest myocardial perfusion scan was done with tomography. Motion correction was applied when appropriate. Gated tomographic images were obtained for wall motion analysis and computation of left ventricular ejection fraction. FINDINGS: There is a small, moderate severity predominantly reversible defect in the distal anterolateral wall. There is a moderate severity partially fixed and partially reversible defect in the proximal to mid inferolateral wall. Computer analysis. Summed stress score 4 Summed rest score 2 Summed difference score 2 Wall motion analysis demonstrates no focal wall motion abnormality. The left ventricular end-diastolic volume is 57 cc. The left ventricular end-systolic volume is 11 cc. The left ventricular ejection fraction is calculated to be 81%. IMPRESSION: 1. On visual analysis, small, moderate severity predominantly reversible defect in the distal anterolateral wall. Moderate severity partially fixed and partially reversible proximal to mid inferolateral wall defect. 2. Left ventricular ejection fraction of 81%. 3. Normal segmental and global wall motion. 4. Normal left ventricular cavity size, no change with stress. 5. Based on computer analysis, mildly abnormal study with mild ischemia. Please correlate findings with stress ECG tracings and procedure notes. RADIA
== END 2018-09-06 10:49 | disposition home or self-care (01) ==
LOC: DI 10:48
PROVIDERS: ATTEND Internal Medicine Cardiovascular Disease
DX: R55 Syncope and collapse (principal); R94.31 Abnormal electrocardiogram [ECG] [EKG]
CPT/HCPCS: 78452; 93016; 93017; 93018; A9500; J2785

== ENCOUNTER 2018-10-08 09:35 | Outpatient (CLI) | payer MEDICARE, OTHER | END 2018-10-08 23:59 | disposition home or self-care (01) | LOC: LAB.WCP 09:35 | PROVIDERS: ATTEND Physician Assistant Medical | DX: E03.9 Hypothyroidism, unspecified (principal) | CPT/HCPCS: 36415; 84443 ==

== ENCOUNTER 2018-10-19 12:50 | Outpatient (CLI) | payer MEDICARE, OTHER ==
--- NOTE | 2018-10-22 10:18 | Ultrasound Report ---
Reason: THYROID NODULE Procedure Date: 10/19/2018 Accession Number: [id number] / [id number] Procedure: US - Head or Neck Soft Tissue CPT Code: FULL RESULT: EXAM: THYROID ULTRASOUND EXAM DATE: 10/19/2018 02:44 PM. CLINICAL HISTORY: Thyroid nodule. COMPARISON: HEAD OR NECK SOFT TISSUE 10/25/2017 5:02 PM. TECHNIQUE: Real time sonographic imaging of the thyroid was performed by the landscape architecture professor. Multiple claim representative static images were saved for review. FINDINGS: THYROID GLAND: Right Lobe: 3.8 x 1.3 x 1.5 cm, volume 3.8 cc. Normal background echotexture. Right Lobe Nodules: 0.7 x 0.6 x 1.5 cm solid nodule. Left Lobe: 2.9 x 1.2 x 1.1 cm, volume 2.0 cc. Arising anteriorly to the left lobe of the thyroid and measured separately is a 2.5 x 0.8 x 1.5 cm complex cyst, mobile debris is demonstrated within. Left Lobe Nodules: None. Isthmus: 0.3 cm AP. Isthmic Nodules: None. LYMPH NODES: No adenopathy demonstrated in the central or lateral compartment. OTHER: None. IMPRESSION: Subcentimeter right thyroid nodule as well as complex cystic structure anterior to the left lobe of the thyroid measuring up to 2.5 cm. The origin of the complex cystic structure is not definitely established as thyroidal or extrathyroidal. While there are apparent septations, no definite easily sampled soft tissue component is visualized. Given this, short-term imaging follow-up likely represents the most viable avenue. Recommend follow-up thyroid ultrasound in 3-6 months. Management recommendations are based on 2015 [place] [employer] Management Guidelines for Adult Patients with Thyroid Nodules and Differentiated Thyroid Cancer. RADIA
== END 2018-10-19 12:51 | disposition home or self-care (01) ==
LOC: DI 12:50
PROVIDERS: ATTEND Physician Assistant Medical
DX: E04.2 Nontoxic multinodular goiter (principal)
CPT/HCPCS: 76536

== ENCOUNTER 2018-11-20 08:00 | Outpatient (CLI) | payer MEDICARE, OTHER ==
[2018-11-20 20:28] LABS: FREE T4 (FREE THYROXINE) 1.47 ng/dL (0.58-1.64)
== END 2018-11-20 23:59 | disposition home or self-care (01) ==
LOC: LAB.WCP 08:00
PROVIDERS: ATTEND Physician Assistant Medical
DX: E03.9 Hypothyroidism, unspecified (principal)
CPT/HCPCS: 36415; 84439; 84443

== ENCOUNTER 2019-02-05 08:51 | Outpatient (CLI) | payer MEDICARE, OTHER ==
[2019-02-05 14:05] LABS: ALBUMIN 3.5 g/dL (3.2-5.5); ALKALINE PHOSPHATASE 66 IU/L (42-121); ALT ALANINE AMINOTRANSFERASE 23 IU/L (10-60); AST ASPARTATE AMINOTRANSFERASE 23 IU/L (10-42); BILIRUBIN,TOTAL 0.8 mg/dL (0.2-1.0); BUN - BLOOD UREA NITROGEN 15 mg/dL (6-20); CALCIUM 8.9 mg/dL (8.5-10.3); CARBON DIOXIDE - CO2 29 mmol/L (21-32); CHLORIDE 107 mmol/L (101-111); CHOL/HDL RATIO 3.6 (<4.4); CHOLESTEROL 164 mg/dL; CREATININE 0.7 mg/dL (0.4-1.0); GFR - MDRD 83 (>89); GLUCOSE 119 mg/dL (70-100); HDL CHOLESTEROL 45 mg/dL; LDL CHOLESTEROL,CALCULATED 103 mg/dL; LDL/HDL RATIO 2.3 (<4.4); SODIUM 143 mmol/L (135-145); TOTAL PROTEIN 6.9 g/dL (6.7-8.2); VLDL CHOLESTEROL 16 mg/dL
[2019-02-05 14:28] LABS: HB2 TOTAL 13.9 g/dL; HEMOGLOBIN A1C 0.57 g/dL; HEMOGLOBIN A1C % 5.9 % (4.6-6.2)
[2019-02-05 20:37] LABS: FREE T4 (FREE THYROXINE) 1.1 ng/dL (0.58-1.64)
== END 2019-02-05 23:59 | disposition home or self-care (01) ==
LOC: LAB.WCP 08:51
PROVIDERS: ATTEND Physician Assistant Medical
DX: E11.9 Type 2 diabetes mellitus without complications (principal); E03.9 Hypothyroidism, unspecified
CPT/HCPCS: 36415; 80053; 80061; 83036; 83721; 84439; 84443

== ENCOUNTER 2019-02-09 07:09 | Outpatient (CLI) | payer MEDICARE, OTHER ==
[2019-02-09] MEDS ORDERED: GADOBUTROL 10 MMOL/10 ML VIAL ONE (08:44)
[2019-02-09] MEDS: GADOBUTROL 10 MMOL/10 ML VIAL IVP ONE (08:55)
--- NOTE | 2019-02-09 15:19 | MRI Report ---
Reason: DIZZINESS Procedure Date: 02/09/2019 Accession Number: [id number] / [id number] Procedure: MRI - Brain W/WO CPT Code: Final Report FULL RESULT: EXAM: MRI BRAIN WITHOUT AND WITH CONTRAST EXAM DATE: 02/09/2019 09:09 AM. CLINICAL HISTORY: 68-year-old woman with dizziness. COMPARISON: None. TECHNIQUE: Multiplanar, multisequence T1-weighted and fluid-sensitive MR sequences of the brain were performed before and after administration of intravenous contrast. Sequences optimized for routine evaluation. Other: High-resolution axial images were acquired through the internal auditory canals. IV Contrast: 9.5 cc Gadavist. FINDINGS: Parenchyma: No evidence of acute infarct on diffusion weighted sequence. The parenchyma is normal in appearance except for minimal nonspecific FLAIR hyperintensity in the periventricular white matter, less than commonly seen in this age group. No evidence of prior hemorrhage on susceptibility weighted sequence. No abnormal enhancement. Pituitary: Unremarkable. Ventricles and Extra-axial Spaces: Ventricles are symmetric and normal in size for age. Extra-axial spaces are unremarkable. No abnormal enhancement. Internal Auditory Canals: Patent without mass lesion or abnormal enhancement bilaterally. Cochleas and vestibular apparatuses demonstrate normal fluid signal intensity without abnormal enhancement. Orbits: Unremarkable. Sinuses: Paranasal sinuses and mastoid air cells are clear. Major Vascular Flow Voids: Intact. Dural Venous Sinuses and Major Central Veins: Patent on post-contrast images. IMPRESSION: 1. Normal MRI of the brain. No evidence of infarct, hemorrhage, or mass lesion. 2. Normal MRI of the internal auditory canals. No abnormal enhancement or mass lesion. RADIA
--- NOTE | 2019-02-11 15:21 | Ultrasound Report ---
Reason: THYROID NODULE Procedure Date: 02/09/2019 Accession Number: [id number] / [id number] Procedure: US - Head or Neck Soft Tissue CPT Code: Final Report FULL RESULT: EXAM: THYROID ULTRASOUND EXAM DATE: 02/09/2019 07:51 AM. CLINICAL HISTORY: THYROID NODULE. Dysphagia. COMPARISON: HEAD OR NECK SOFT TISSUE 10/19/2018 2:43 PM HEAD OR NECK SOFT TISSUE 10/25/2017 5:02 PM. TECHNIQUE: Real time sonographic imaging of the thyroid was performed by the garment form assembler. Multiple sales utility representative static images were saved for review. FINDINGS: THYROID GLAND: Right Lobe: 3.4 x 0.9 x 1.1 cm, volume 1.8 cc. Heterogeneous background echotexture. Right Lobe Nodules: Stable 5 x 4 x 4 mm hyperechoic avascular mid thyroid nodule with posterior shadowing. Left Lobe: 3.2 x 1.3 x 1 cm, volume 2.2 cc. Heterogeneous background echotexture. Left Lobe Nodules: None. Anterior to the medial left lobe and isthmus is a 1.9 x 0.6 x 1.7 cm complex appearing cyst with mobile internal debris similar in appearance to the 10/19/2018 ultrasound and not described on the 10/25/2017 thyroid ultrasound report. Isthmus: 0.3 cm AP. Isthmic Nodules: None. LYMPH NODES: Small bilateral normal-appearing lymph nodes are seen. OTHER: None. IMPRESSION: Stable thyroid ultrasound compared with 10/19/2018 with particular reference to the complex cystic structure anterior to the thyroid isthmus and left lobe. Further evaluation by contrast-enhanced CT scan may be useful for further evaluation. Management recommendations are based on 2015 [place] [employer] Management Guidelines for Adult Patients with Thyroid Nodules and Differentiated Thyroid Cancer. RADIA
== END 2019-02-09 07:10 | disposition home or self-care (01) ==
LOC: DI 07:09
PROVIDERS: ATTEND Physician Assistant Medical
DX: E04.1 Nontoxic single thyroid nodule (principal); R42 Dizziness and giddiness
CPT/HCPCS: 70553; 76536; A9585

== ENCOUNTER 2019-02-12 11:22 | Outpatient (CLI) | payer MEDICARE, OTHER ==
--- NOTE | 2019-02-12 14:42 | Mammography Report ---
Reason: ROUTINE MAMMO Procedure Date: 02/12/2019 Accession Number: [id number] / [id number] Procedure: MGN - Screening Mammo Dig Bilat CPT Code: Final Report FULL RESULT: EXAM: Screening Mammo Dig Bilat DATE: 02/12/2019 11:42 AM CLINICAL HISTORY: Routine screening TECHNIQUE: (B) - Bilateral CC and MLO views were obtained. COMPARISON: 01/16/2017, 10/23/2015, 08/19/2014, 08/12/2013, 08/06/2012, 03/04/2011 and 01/27/2010 PARENCHYMAL PATTERN: (A) - The breasts demonstrate scattered fibroglandular densities bilaterally. FINDINGS: No significant interval change. Scattered bilateral calcifications are stable. There are no new suspicious masses, calcifications, or areas of distortion. IMPRESSION: Benign findings. BI-RADS category 2. RECOMMENDATION: (ANNUAL) - Recommend routine annual screening mammography. BI-RADS CATEGORY: (2) - Benign Findings. STANDARD QUALIFYING STATEMENTS: 1. This examination was not reviewed with the aid of Computer-Aided Detection (CAD). 2. A negative or benign imaging report should not preclude biopsy if clinically suspicious findings are present. 3. Dense breasts may obscure an underlying neoplasm. 4. This examination was reviewed without the aid of 3D breast imaging (tomosynthesis).
== END 2019-02-12 11:23 | disposition home or self-care (01) ==
LOC: DI.N 11:22
DX: Z12.31 Encounter for screening mammogram for malignant neoplasm of breast (principal)
CPT/HCPCS: 77067

== ENCOUNTER 2019-02-18 16:36 | Outpatient (CLI) | payer MEDICARE, OTHER ==
[2019-02-18] MEDS ORDERED: IOVERSOL 320 100 ML VIAL IVP ONE ×2 (16:44→17:11)
--- NOTE | 2019-02-18 18:22 | CT Report ---
Reason: THYROID NODULE Procedure Date: 02/18/2019 Accession Number: [id number] / [id number] Procedure: CT - SOFT TISSUE NECK W CPT Code: Final Report FULL RESULT: EXAM: CT SOFT TISSUE NECK WITH CONTRAST. EXAM DATE: 02/18/2019 05:06 PM. HISTORY: Left thyroid nodule. COMPARISONS: HEAD OR NECK SOFT TISSUE 02/09/2019 7:09 AM. TECHNIQUE: Routine soft tissue neck CT protocol with contrast. Reconstructions: Coronal and sagittal. IV contrast: OPTI 320 80ML. In accordance with CT protocol optimization, one or more of the following dose reduction techniques were utilized for this exam: automated exposure control, adjustment of mA and/or KV based on patient size, or use of iterative reconstructive technique. FINDINGS: Visualized Intracranial Contents: Unremarkable. Orbits: Post surgical changes from cataract extractions are noted in the globes. Sinuses: Visualized paranasal sinuses and mastoid air cells are clear. Oral cavity: The visualized oral cavity is unremarkable. The floor of the mouth is symmetric. Pharynx: Pharyngeal mucosa is unremarkable. The infratemporal fossa, parapharyngeal spaces, and retropharyngeal space are unremarkable. The base of the tongue is symmetric and unremarkable. The airway is patent. Larynx: Larynx and supraglottic airway are patent without mass lesion. Vocal cords are symmetric. The visualized trachea is unremarkable. Parotid and Submandibular Glands: Symmetric and unremarkable. Lymph Nodes: No enlarged lymph nodes are identified in the cervical, supraclavicular, and visualized superior mediastinal regions. Soft tissues: Soft tissues are unremarkable. No mass lesion or abnormal enhancement. Vascular Structures: Grossly patent. Retropharyngeal course of the right ICA is noted. Thyroid Gland: There is a subtle hypodense nodule in the left medial aspect of the thyroid lobe measuring up to 1.1 cm (image 98, series 3; image 49, series 5). Apparent smaller size of this nodule is likely related to differences in technique between this exam and the prior thyroid ultrasound. There is no evidence of invasion of adjacent soft tissues from this thyroid nodule. Lung: The visualized lung apices are clear. Bones: Mild degenerative changes are present throughout the cervical spine. No osteoblastic or osteolytic lesions. IMPRESSION: 1. The known medial left thyroid nodule is not as well seen on this exam as on the thyroid ultrasound due to decreased resolution of CT. It appears to be smaller in size on this exam measuring up to 1.1 cm which may be related to differences in technique rather than true retraction of the cystic lesion. No evidence of invasion of adjacent soft tissue structures. 2. Patent airway and vasculature. 3. No other acute abnormality seen in the remaining soft tissues of the neck. RADIA
== END 2019-02-18 16:37 | disposition home or self-care (01) ==
LOC: DI 16:36
PROVIDERS: ATTEND Physician Assistant Medical
DX: E04.1 Nontoxic single thyroid nodule (principal)
CPT/HCPCS: 70491; Q9967

== ENCOUNTER 2019-02-22 08:00 | Outpatient (CLI) | payer MEDICARE, OTHER | END 2019-02-22 23:59 | disposition home or self-care (01) | LOC: LAB.R 08:00 | PROVIDERS: ATTEND Family Medicine | DX: N39.0 Urinary tract infection, site not specified (principal) | CPT/HCPCS: 87077; 87086; 87181 ==

== ENCOUNTER 2019-08-09 08:00 | Outpatient (CLI) | payer MEDICARE, OTHER ==
[2019-08-09 12:21] LABS: CREATININE 0.7 mg/dL (0.4-1.0)
[2019-08-09 12:38] LABS: HB2 TOTAL 14.7 g/dL; HEMOGLOBIN A1C 0.56 g/dL; HEMOGLOBIN A1C % 5.6 % (4.6-6.2)
[2019-08-09 19:16] LABS: CREATININE,URINE 74.1 mg/dL; MICROALBUM/CREATININE RATIO,UR 2.7 ug/mg (<30.0); MICROALBUMIN,URINE 0.2 mg/dL (0-300.0)
== END 2019-08-09 23:59 | disposition home or self-care (01) ==
LOC: LAB.WCP 08:00
PROVIDERS: ATTEND Physician Assistant Medical
DX: E11.9 Type 2 diabetes mellitus without complications (principal)
CPT/HCPCS: 36415; 80048; 82043; 82570; 83036

== ENCOUNTER 2019-11-25 08:00 | Outpatient (CLI) | payer MEDICARE, OTHER ==
[2019-11-25 18:14] LABS: CALCIUM 9.2 mg/dL (8.5-10.3); CREATININE 0.7 mg/dL (0.4-1.0)
[2019-11-25 18:20] LABS: BASOPHILS % (AUTO) 0.7 %; EOSINOPHILS # (AUTO) 0.2 10^3/uL (0.0-0.7); EOSINOPHILS % (AUTO) 3.6 %; HGB - HEMOGLOBIN 13.9 g/dL (12.0-16.0); LYMPHOCYTES # (AUTO) 2.1 10^3/uL (1.5-3.5); MEAN CORPUSCULAR HEMOGLOBIN 34.7 pg (27.0-31.0); MEAN CORPUSCULAR HGB CONC 33.4 g/dL (32.0-36.0); MEAN CORPUSCULAR VOLUME 103.7 fL (81.0-99.0); MEAN PLATELET VOLUME 9.7 fL (7.9-10.8); MONOCYTES # (AUTO) 0.6 10^3/uL (0.0-1.0); NEUTROPHILS # (AUTO) 2.9 10^3/uL (1.5-6.6); NEUTROPHILS % (AUTO) 49.4 %; PLT - PLATELET COUNT 310 10^3/uL (130-450); RED BLOOD COUNT 4.01 10^6/uL (4.20-5.40); RED CELL DISTRIBUTION WIDTH 12.8 % (12.0-15.0); WHITE BLOOD COUNT 5.9 x10^3/uL (4.8-10.8)
== END 2019-11-25 23:59 | disposition home or self-care (01) ==
LOC: LAB.WCP 08:00
PROVIDERS: ATTEND Physician Assistant Medical
DX: E11.9 Type 2 diabetes mellitus without complications (principal)
CPT/HCPCS: 36415; 80048; 85025

== ENCOUNTER 2020-03-02 10:46 | Outpatient (CLI) | payer MEDICARE, OTHER ==
--- NOTE | 2020-03-03 12:23 | Mammography Report ---
BILATERAL DIGITAL SCREENING MAMMOGRAM 3D/2D: 03/02/2020 CLINICAL: Routine screening. Comparison is made to exams dated: 02/12/2019 mammogram, 01/16/2017 mammogram, and 10/23/2015 mammogr am - [facility]. The tissue of both breasts is predominantly fatty. There are benign calcifications in both breasts. No significant masses, calcifications, or other findings are seen in either breast. There has been no significant interval change. IMPRESSION: BENIGN There is no mammographic evidence of malignancy. A 1 year screening mammogram is recommended. This exam was interpreted at Station ID: [id number]. NOTE: For mammograms, a report in lay terms will be sent to the patient. Approximately 15% of breast malignancies will not be visualized mammographically. In the management of a palpable breast mass, a negative mammogram must not discourage biopsy of a clinically suspicious lesion. Electronically Signed By: Chinyere moyer/irenerad:03/02/2020 13:29:22 ACR BI-RADS Category 2: Benign Finding(s) 3342F PARENCHYMAL PATTERN: (F) - The breast(s) demonstrate(s) diffuse fatty replacement. BI-RADS CATEGORY: (2) - 2 RECOMMENDATION: (ANNUAL) - Recommend routine annual screening mammography. [id number] 1 year screening LATERALITY: (B)
== END 2020-03-02 10:47 | disposition home or self-care (01) ==
LOC: DI.N 10:46
DX: Z12.31 Encounter for screening mammogram for malignant neoplasm of breast (principal)
CPT/HCPCS: 77067

== ENCOUNTER 2020-06-16 08:33 | Outpatient (CLI) | payer MEDICARE, OTHER ==
[2020-06-16 13:43] LABS: ALBUMIN 3.7 g/dL (3.2-5.5); ALBUMIN/GLOBULIN RATIO 1.1 (1.0-2.2); ALKALINE PHOSPHATASE 81 IU/L (42-121); ALT ALANINE AMINOTRANSFERASE 18 IU/L (10-60); AST ASPARTATE AMINOTRANSFERASE 21 IU/L (10-42); BILIRUBIN,TOTAL 0.7 mg/dL (0.2-1.0); BUN - BLOOD UREA NITROGEN 18 mg/dL (6-20); CALCIUM 9.2 mg/dL (8.5-10.3); CARBON DIOXIDE - CO2 27 mmol/L (21-32); CHLORIDE 105 mmol/L (101-111); CHOL/HDL RATIO 4.9 (<4.4); CHOLESTEROL 234 mg/dL; CREATININE 0.6 mg/dL (0.4-1.0); GFR - MDRD 99 (>89); GLUCOSE 149 mg/dL (70-100); HDL CHOLESTEROL 48 mg/dL; LDL CHOLESTEROL,CALCULATED 165 mg/dL; LDL/HDL RATIO 3.4 (<4.4); POTASSIUM 4.2 mmol/L (3.5-5.0); SODIUM 141 mmol/L (135-145); TOTAL PROTEIN 7.2 g/dL (6.7-8.2); TRIGLYCERIDES 107 mg/dL; VLDL CHOLESTEROL 21 mg/dL
[2020-06-16 13:50] LABS: ESTIMATED AVERAGE GLUCOSE 128 mg/dL (70-100); HEMOGLOBIN A1c% 6.1 % (4.27-6.07)
[2020-06-16 13:51] LABS: THYROID STIMULATING HORMONE 4.34 uIU/mL (0.34-5.60)
== END 2020-06-16 23:59 | disposition home or self-care (01) ==
LOC: LAB.WCP 08:33
PROVIDERS: ATTEND Physician Assistant Medical
DX: E11.9 Type 2 diabetes mellitus without complications (principal); E03.9 Hypothyroidism, unspecified
CPT/HCPCS: 36415; 80053; 80061; 83036; 83721; 84443

== ENCOUNTER 2020-09-25 08:00 | Outpatient (CLI) | payer MEDICARE, OTHER ==
[2020-09-25 12:33] LABS: ALBUMIN 3.8 g/dL (3.2-5.5); ALKALINE PHOSPHATASE 86 IU/L (42-121); ALT ALANINE AMINOTRANSFERASE 30 IU/L (10-60); AST ASPARTATE AMINOTRANSFERASE 33 IU/L (10-42); BILIRUBIN,TOTAL 0.8 mg/dL (0.2-1.0); BUN - BLOOD UREA NITROGEN 14 mg/dL (6-20); CALCIUM 9.1 mg/dL (8.5-10.3); CARBON DIOXIDE - CO2 26 mmol/L (21-32); CHLORIDE 103 mmol/L (101-111); CHOL/HDL RATIO 3.2 (<4.4); CHOLESTEROL 162 mg/dL; CREATININE 0.7 mg/dL (0.4-1.0); GFR - MDRD 83 (>89); GLUCOSE 129 mg/dL (70-100); HDL CHOLESTEROL 51 mg/dL; LDL CHOLESTEROL,CALCULATED 86 mg/dL; LDL/HDL RATIO 1.7 (<4.4); POTASSIUM 4.2 mmol/L (3.5-5.0); SODIUM 139 mmol/L (135-145); TOTAL PROTEIN 7.6 g/dL (6.7-8.2); TRIGLYCERIDES 125 mg/dL; VLDL CHOLESTEROL 25 mg/dL
[2020-09-25 12:45] LABS: THYROID STIMULATING HORMONE 3.08 uIU/mL (0.34-5.60)
== END 2020-09-25 23:59 | disposition home or self-care (01) ==
LOC: LAB.WCP 08:00
PROVIDERS: ATTEND Physician Assistant Medical
DX: E78.5 Hyperlipidemia, unspecified (principal); E03.9 Hypothyroidism, unspecified
CPT/HCPCS: 36415; 80053; 80061; 83721; 84443

== ENCOUNTER 2020-11-19 14:55 | Outpatient (CLI) | payer MEDICARE, OTHER ==
--- NOTE | 2020-11-19 16:57 | Ultrasound Report ---
PROCEDURE: Head or Neck Soft Tissue INDICATIONS: THYROID NODULE TECHNIQUE: Real-time scanning was performed of the thyroid gland, with image documentation. COMPARISON: Thyroid ultrasound 02/09/2019. FINDINGS: The right thyroid lobe measures 3.3 x 1.2 x 1.2 cm. Left thyroid lobe measures 2.6 x 1.5 x 1.4 cm. Th e isthmus measures 0.2 cm in thickness. The thyroid appears heterogeneous bilaterally. A 0.4 x 0.3 x 0.3 cm wider than tall solid hyperechoic nodule is seen in the right thyroid lobe with smooth margins and, tail artifact. Previously this nodule measured 0.5 x 0.4 x 0.4 cm. TI-RADS Catego ry 3, mildly suspicious. A 1.7 x 0.7 x 1.6 cm wider than tall predominantly cystic hypoechoic nodule is seen in the anterior t hyroid with smooth margins with no echogenic foci. Previously this nodule measured 1.9 x 0.6 x 1.7 cm . TI-RADS category 2, not suspicious. IMPRESSION: Heterogeneous thyroid with small thyroid nodules, which do not require dedicated imaging follow-up ba sed on TI-RADS criteria. Reviewed by: Osmin Fritz MD on 11/19/2020 4:56 PM PDT Approved by: Osmin Fritz MD on 11/19/2020 4:56 PM PDT Station ID: [id number]
== END 2020-11-19 14:56 | disposition home or self-care (01) ==
LOC: DI 14:55
PROVIDERS: ATTEND Physician Assistant Medical
DX: E04.2 Nontoxic multinodular goiter (principal)

== ENCOUNTER 2021-04-26 08:00 | Outpatient (CLI) | payer MEDICARE, OTHER ==
[2021-04-26 17:49] LABS: BASOPHILS % (AUTO) 0.5 %; EOSINOPHILS # (AUTO) 0.4 10^3/uL (0.0-0.7); EOSINOPHILS % (AUTO) 5.4 %; HCT - HEMATOCRIT 41.7 % (37.0-47.0); HGB - HEMOGLOBIN 14.2 g/dL (12.0-16.0); LYMPHOCYTES # (AUTO) 1.9 10^3/uL (1.5-3.5); LYMPHOCYTES % (AUTO) 24.9 %; MEAN CORPUSCULAR HEMOGLOBIN 33.4 pg (27.0-31.0); MEAN CORPUSCULAR HGB CONC 34.1 g/dL (32.0-36.0); MEAN CORPUSCULAR VOLUME 98.1 fL (81.0-99.0); MEAN PLATELET VOLUME 10.4 fL (7.9-10.8); MONOCYTES # (AUTO) 0.6 10^3/uL (0.0-1.0); MONOCYTES % (AUTO) 8.1 %; NEUTROPHILS # (AUTO) 4.7 10^3/uL (1.5-6.6); NEUTROPHILS % (AUTO) 60.8 %; PLT - PLATELET COUNT 309 10^3/uL (130-450); RED BLOOD COUNT 4.25 10^6/uL (4.20-5.40); RED CELL DISTRIBUTION WIDTH 13.5 % (12.0-15.0); WHITE BLOOD COUNT 7.6 x10^3/uL (4.8-10.8)
[2021-04-26 18:18] LABS: CALCIUM 9.7 mg/dL (8.5-10.3); CREATININE 0.6 mg/dL (0.4-1.0)
== END 2021-04-26 23:59 | disposition home or self-care (01) ==
LOC: LAB.N 08:00
PROVIDERS: ATTEND Family Medicine
DX: R06.2 Wheezing (principal); Z20.822 Contact with and (suspected) exposure to COVID-19
CPT/HCPCS: 36415; 80048; 83880; 85025; U0004

== ENCOUNTER 2021-04-26 14:00 | Outpatient (CLI) | payer MEDICARE, OTHER ==
--- NOTE | 2021-04-26 17:13 | XRAY Report ---
PROCEDURE: Chest 2 View X-Ray INDICATIONS: WHEEZING TECHNIQUE: 2 views of the chest. COMPARISON: Chest radiograph 11/07/2017. FINDINGS: Surgical changes and devices: None. Lungs and pleura: No pleural effusions or pneumothorax. Lungs are clear. Mediastinum: Mediastinal contours are normal. Heart size is normal. Bones and chest wall: No suspicious bony abnormalities. Soft tissues appear unremarkable. IMPRESSION: 90 cardiopulmonary abnormality. Reviewed by: Osmin Fritz MD on 04/26/2021 5:12 PM PST Approved by: Osmin Fritz MD on 04/26/2021 5:12 PM PST Station ID: [id number]
== END 2021-04-26 23:59 | disposition home or self-care (01) ==
LOC: DI.N 14:00
PROVIDERS: ATTEND Family Medicine
DX: R06.2 Wheezing (principal); Z20.822 Contact with and (suspected) exposure to COVID-19
CPT/HCPCS: 36415; 71046; 80048; 83880; 85025; U0004

== ENCOUNTER 2021-05-18 13:44 | Outpatient (CLI) | payer MEDICARE, OTHER ==
--- NOTE | 2021-05-18 14:58 | XRAY Report ---
PROCEDURE: Chest 2 View X-Ray INDICATIONS: CHRONIC COUGH, WHEEZING TECHNIQUE: 2 view(s) of the chest. COMPARISON: 04/26/2021.. FINDINGS: Surgical changes and devices: None. Lungs and pleura: No pleural effusions or pneumothorax. Lungs are clear. Mediastinum: Mediastinal contours are normal. Heart size is normal. Bones and chest wall: No suspicious bony abnormalities. Soft tissues appear unremarkable. IMPRESSION: No acute cardiopulmonary disease process. Reviewed by: Malina Monge MD, PhD on 05/18/2021 2:57 PM PDT Approved by: Malina Monge MD, PhD on 05/18/2021 2:57 PM PDT Station ID: [id number]
== END 2021-05-18 23:59 | disposition home or self-care (01) ==
LOC: DI.N 13:44
PROVIDERS: ATTEND Family Medicine
DX: R05.3 Chronic cough (principal); R06.2 Wheezing

== ENCOUNTER 2021-07-08 13:24 | Outpatient (CLI) | payer MEDICARE, OTHER ==
[2021-07-08] MEDS ORDERED: ALBUTEROL 1 PUFF INH STA (15:42)
== END 2021-07-08 13:25 | disposition home or self-care (01) ==
LOC: RT 13:24
PROVIDERS: ATTEND Physician Assistant Medical
DX: R05.3 Chronic cough (principal)
CPT/HCPCS: 94060

== ENCOUNTER 2021-08-19 08:03 | Outpatient (CLI) | payer MEDICARE, OTHER ==
--- NOTE | 2021-08-19 12:45 | CT Report ---
PROCEDURE: CHEST WO INDICATIONS: Chronic cough TECHNIQUE: Noncontrast 1mm axial images were acquired from the pulmonary apices to the posterior costophrenic an gles. Axial 5 mm soft tissue kernel reconstructions were performed as well as 8 mm axial MIP and cor onal and sagittal 5 mm reformations. For radiation dose reduction, the following was used: automate d exposure control, adjustment of mA and/or kV according to patient size. COMPARISON: No pertinent prior study. FINDINGS: Image quality: Excellent. Lungs and pleura: No acute air space opacities. No pleural effusions or pneumothorax. Central and peripheral airways are patent and normal in caliber. Mediastinum: Normal heart size. No pericardial effusion. Mild coronary atherosclerosis. Normal calibe r thoracic aorta. No mediastinal lymphadenopathy. Bones and chest wall: No suspicious lytic or blastic osseous chest wall lesion Abdomen: No acute finding in the included unenhanced upper abdomen. Cholelithiasis. Hepatic steatosis . IMPRESSION: No pulmonary, pleural, or airway abnormality to explain cough. Reviewed by: Orion Lincoln MD on 08/19/2021 12:43 PM PDT Approved by: Orion Lincoln MD on 08/19/2021 12:43 PM PDT Station ID: [id number]
== END 2021-08-19 08:04 | disposition home or self-care (01) ==
LOC: DI 08:03
PROVIDERS: ATTEND Physician Assistant Medical
DX: R05.3 Chronic cough (principal)

== ENCOUNTER 2021-11-05 10:31 | Outpatient (CLI) | payer MEDICARE, OTHER | END 2021-11-05 23:59 | disposition home or self-care (01) | LOC: LAB.N 10:31 | PROVIDERS: ATTEND Family Medicine | DX: N39.0 Urinary tract infection, site not specified (principal) | CPT/HCPCS: 87077; 87086; 87181 ==

== ENCOUNTER 2022-01-25 08:00 | Outpatient (CLI) | payer MEDICARE, OTHER ==
[2022-01-25 18:38] LABS: BASOPHILS % (AUTO) 0.6 %; EOSINOPHILS # (AUTO) 0.2 10^3/uL (0.0-0.7); EOSINOPHILS % (AUTO) 2.5 %; HCT - HEMATOCRIT 42.4 % (37.0-47.0); HGB - HEMOGLOBIN 13.9 g/dL (12.0-16.0); LYMPHOCYTES # (AUTO) 2.1 10^3/uL (1.5-3.5); LYMPHOCYTES % (AUTO) 33.2 %; MEAN CORPUSCULAR HEMOGLOBIN 32.8 pg (27.0-31.0); MEAN CORPUSCULAR HGB CONC 32.8 g/dL (32.0-36.0); MEAN PLATELET VOLUME 9.8 fL (7.9-10.8); MONOCYTES # (AUTO) 0.7 10^3/uL (0.0-1.0); MONOCYTES % (AUTO) 10.2 %; NEUTROPHILS # (AUTO) 3.4 10^3/uL (1.5-6.6); NEUTROPHILS % (AUTO) 53.2 %; PLT - PLATELET COUNT 317 10^3/uL (130-450); RED BLOOD COUNT 4.24 10^6/uL (4.20-5.40); RED CELL DISTRIBUTION WIDTH 13.1 % (12.0-15.0); WHITE BLOOD COUNT 6.4 x10^3/uL (4.8-10.8)
[2022-01-25 18:51] LABS: ALBUMIN 3.5 g/dL (3.2-5.5); ALBUMIN/GLOBULIN RATIO 0.9 (1.0-2.2); BILIRUBIN,TOTAL 0.6 mg/dL (0.2-1.0); CALCIUM 9.4 mg/dL (8.5-10.3); CREATININE 0.6 mg/dL (0.4-1.0); POTASSIUM 4.2 mmol/L (3.5-5.0); TOTAL PROTEIN 7.5 g/dL (6.7-8.2)
== END 2022-01-25 23:59 | disposition home or self-care (01) ==
LOC: LAB.N 08:00
PROVIDERS: ATTEND Nurse Practitioner
DX: R30.0 Dysuria (principal)
CPT/HCPCS: 36415; 80053; 85025; 87086

== ENCOUNTER 2022-02-21 08:00 | Outpatient (CLI) | payer MEDICARE, OTHER ==
[2022-02-21 20:16] LABS: BACTERIAL VAGINOSIS DNA NEGATIVE (NEGATIVE); CANDIDA GLABRATA DNA NEGATIVE (NEGATIVE); CANDIDA GROUP DNA NEGATIVE (NEGATIVE); CANDIDA KRUSEI DNA NEGATIVE (NEGATIVE); TRICHOMONAS VAGINALIS DNA NEGATIVE (NEGATIVE)
== END 2022-02-21 23:59 | disposition home or self-care (01) ==
LOC: LAB.N 08:00
PROVIDERS: ATTEND Physician Assistant
DX: R30.0 Dysuria (principal); N89.8 Other specified noninflammatory disorders of vagina
CPT/HCPCS: 81514; 87086

== ENCOUNTER 2022-03-02 08:00 | Outpatient (CLI) | payer MEDICARE, OTHER | END 2022-03-02 23:59 | disposition home or self-care (01) | LOC: LAB.N 08:00 | PROVIDERS: ATTEND Physician Assistant | DX: R30.0 Dysuria (principal) | CPT/HCPCS: 87086 ==

== ENCOUNTER 2022-03-11 08:00 | Outpatient (CLI) | payer MEDICARE, OTHER | END 2022-03-11 23:59 | disposition home or self-care (01) | LOC: LAB.N 08:00 | PROVIDERS: ATTEND Family Medicine | DX: R30.0 Dysuria (principal) | CPT/HCPCS: 87086 ==

== ENCOUNTER 2022-06-06 08:30 | Outpatient (CLI) | payer MEDICARE, OTHER ==
[2022-06-06 12:36] LABS: BASOPHILS % (AUTO) 0.6 %; EOSINOPHILS # (AUTO) 0.2 10^3/uL (0.0-0.7); EOSINOPHILS % (AUTO) 3.1 %; HCT - HEMATOCRIT 42.6 % (37.0-47.0); LYMPHOCYTES # (AUTO) 2.4 10^3/uL (1.5-3.5); LYMPHOCYTES % (AUTO) 37.2 %; MEAN CORPUSCULAR HEMOGLOBIN 32.6 pg (27.0-31.0); MEAN CORPUSCULAR HGB CONC 32.9 g/dL (32.0-36.0); MEAN CORPUSCULAR VOLUME 99.3 fL (81.0-99.0); MEAN PLATELET VOLUME 10.3 fL (7.9-10.8); MONOCYTES # (AUTO) 0.5 10^3/uL (0.0-1.0); MONOCYTES % (AUTO) 7.6 %; NEUTROPHILS # (AUTO) 3.3 10^3/uL (1.5-6.6); NEUTROPHILS % (AUTO) 51.3 %; PLT - PLATELET COUNT 278 10^3/uL (130-450); RED BLOOD COUNT 4.29 10^6/uL (4.20-5.40); RED CELL DISTRIBUTION WIDTH 13.2 % (12.0-15.0); WHITE BLOOD COUNT 6.5 x10^3/uL (4.8-10.8)
[2022-06-06 13:12] LABS: ESTIMATED AVERAGE GLUCOSE 143 mg/dL (70-100); HEMOGLOBIN A1c% 6.6 % (4.27-6.07)
[2022-06-06 13:17] LABS: ALBUMIN 3.7 g/dL (3.2-5.5); ALBUMIN/GLOBULIN RATIO 1.1 (1.0-2.2); ALKALINE PHOSPHATASE 71 IU/L (42-121); ALT ALANINE AMINOTRANSFERASE 17 IU/L (10-60); AST ASPARTATE AMINOTRANSFERASE 19 IU/L (10-42); BILIRUBIN,TOTAL 0.5 mg/dL (0.2-1.0); BUN - BLOOD UREA NITROGEN 16 mg/dL (6-20); CALCIUM 9.1 mg/dL (8.5-10.3); CARBON DIOXIDE - CO2 29 mmol/L (21-32); CHLORIDE 108 mmol/L (101-111); CHOL/HDL RATIO 2.9 (<4.4); CHOLESTEROL 144 mg/dL; CREATININE 0.6 mg/dL (0.4-1.0); GFR - MDRD 99 (>89); GLUCOSE 134 mg/dL (70-100); HDL CHOLESTEROL 49 mg/dL; LDL CHOLESTEROL,CALCULATED 73 mg/dL; LDL/HDL RATIO 1.5 (<4.4); POTASSIUM 4.2 mmol/L (3.5-5.0); SODIUM 141 mmol/L (135-145); TOTAL PROTEIN 7.2 g/dL (6.7-8.2); TRIGLYCERIDES 112 mg/dL; VLDL CHOLESTEROL 22 mg/dL
[2022-06-06 13:42] LABS: THYROID STIMULATING HORMONE 0.01 uIU/mL (0.34-5.60)
[2022-06-06 16:18] LABS: FREE T4 (FREE THYROXINE) 1.57 ng/dL (0.58-1.64)
== END 2022-06-06 08:31 | disposition home or self-care (01) ==
LOC: LAB.N 08:30
PROVIDERS: ATTEND Physician Assistant Medical
DX: E11.9 Type 2 diabetes mellitus without complications (principal); E03.9 Hypothyroidism, unspecified; J30.9 Allergic rhinitis, unspecified
CPT/HCPCS: 36415; 80053; 80061; 83036; 83721; 84439; 84443; 85025

== ENCOUNTER 2023-03-28 14:18 | Outpatient (CLI) | payer MEDICARE, OTHER ==
--- NOTE | 2023-03-30 15:59 | Mammography Report ---
BILATERAL DIGITAL SCREENING MAMMOGRAM 3D/2D: 03/28/2023 CLINICAL: Routine screening. Comparison is made to exams dated: 10/05/2021 mammogram, 03/02/2020 mammogram, 02/12/2019 mammogram, mammogram, 10/23/2015 mammogram, and 08/19/2014 mammogram - [facility]. Both breasts are almost entirely fatty (category a/<25% glandular tissue). There are benign calcifications in both breasts. There also are benign vascular calcifications in niko th breasts. No significant masses, calcifications, or other findings are seen in either breast. There has been no significant interval change. IMPRESSION: BENIGN There is no mammographic evidence of malignancy. A 1 year screening mammogram is recommended. Based on the Tyrer Cuzick model (a risk assessment model) the patient's lifetime risk is 2.9% and her 10 year risk is 2.0%. According to the ACR, ACS, and NCCN guidelines, an annual breast MRI exam dandre g with mammogram is recommended if the patients lifetime risk is 20% or greater. This exam was interpreted at Station ID: [id number]. NOTE: For mammograms, a report in lay terms will be sent to the patient. Approximately 15% of breast malignancies will not be visualized mammographically. In the management of a palpable breast mass, a negative mammogram must not discourage biopsy of a clinically suspicious lesion. Electronically Signed By: Joao hopkins/jazmin:03/29/2023 23:47:37 letter sent: No_Letter ACR BI-RADS Category 2: Benign Finding(s) 3342F PARENCHYMAL PATTERN: (F) - The breast(s) demonstrate(s) diffuse fatty replacement. BI-RADS CATEGORY: (2) - 2 Mammogram [id number] 1 year screening LATERALITY: (B)
== END 2023-03-28 14:19 | disposition home or self-care (01) ==
LOC: DI.N 14:18
DX: Z12.31 Encounter for screening mammogram for malignant neoplasm of breast (principal); R92.1 Mammographic calcification found on diagnostic imaging of breast

== ENCOUNTER 2023-04-05 13:44 | Outpatient (CLI) | payer MEDICARE, OTHER ==
--- NOTE | 2023-04-05 16:13 | DEXA Report ---
PROCEDURE: Dexa Spine and/or Hip INDICATIONS: POST MENOPAUSAL TECHNIQUE: Dual energy x-ray absorptiometry (DXA) was performed on a [employer] System. Regions measur ed are the AP Spine, femoral neck, and if needed forearm. COMPARISON: None FINDINGS: Lumbar Spine: Bone Mineral Density: 1.094 g/cm/cm,T score: -0.7. Normal. Left Femoral Neck: Bone Mineral Density: 0.843 g/cm/cm, T score: -1.4. Osteopenia. Left Hip: Bone Mineral Density: 0.935 g/cm/cm,T score: -0.6. Normal. (T score greater or equal to -1.0: NORMAL) (T score from -1.1 to -2.4: OSTEOPENIA) (T score less than or equal to -2.5 to: OSTEOPOROSIS) Impression: By WHO criteria, this patient has low bone density (osteopenia) of the left femoral neck. Patients with diagnosis of osteoporosis or osteopenia should have regular bone mineral density assess ment. For those eligible for Medicare, routine testing is allowed once every 2 years. Testing frequ ency can be increased for patients who have rapidly progressing disease or for those who are receivin g medical therapy to restore bone mass. Reviewed by: Jessica Knight MD on 04/05/2023 4:11 PM PST Approved by: Jessica Knight MD on 04/05/2023 4:11 PM PST Station ID: [id number]
== END 2023-04-05 13:45 | disposition home or self-care (01) ==
LOC: DI 13:44
PROVIDERS: ATTEND Physician Assistant Medical
DX: Z78.0 Asymptomatic menopausal state (principal); M85.88 Other specified disorders of bone density and structure, other site